=== PATIENT | female | born 1935 | race Caucasian/White ===

== ENCOUNTER 2018-08-02 14:08 | Emergency (ER) | payer BC ==
[2018-08-02 15:25] LABS: Absolute Lymphocytes (CBC) 2.1 K/uL (0.7-4.9); Absolute Monocytes 0.4 K/uL (0.1-1.3); Absolute Neutrophil 3.5 K/uL (1.8-8.0); Basophils % 0.9 % (0-1.3); Hematocrit 36.8 % (36.0-45.0); Lymphocytes % 32.2 % (15.3-44.8); MPV 8.2 fL (7.6-11.3); Monocytes % 6.7 % (3.3-12.3); RBC Red Blood Cell Count 4.07 M/uL (3.86-4.86)
--- NOTE | 2018-08-02 15:31 | RAD REPORT ---
EXAM DESCRIPTION: RAD - Chest Single View - 08/02/2018 3:14 pm CLINICAL HISTORY: Left-sided chest pain COMPARISON: None. TECHNIQUE: AP portable chest image was obtained 1511 hours . FINDINGS: Lungs are clear. Heart and vasculature are normal. No measurable pleural effusion and no p neumothorax. No acute bony abnormality seen. No acute aortic findings suspected. IMPRESSION: No acute cardiopulmonary process.
[2018-08-02 15:32] LABS: BUN Blood Urea Nitrogen 12 mg/dL (7-18); Bicarbonate 26 mmol/L (21-32); Glucose Level 100 mg/dL (74-106); NT PRO-BNP 138 pg/mL (<450); Potassium 3.8 mmol/L (3.5-5.1); Sodium Level 140 mmol/L (136-145); Troponin (Emerg Dept Use Only) < 0.02 ng/mL (0.0-0.045)
--- NOTE | 2018-08-02 16:12 | ER ---
Nurse's Notes [facility] Name: Jihan Jiménez Age: 83 yrs Sex: Female : 1935 Arrival Date: 08/02/2018 Time: 14:11 Bed 14 Private MD: Diagnosis: Chest pain, unspecified Presentation: 08/02 14:14 Presenting complaint: Patient states: Left-sided chest pain radiating to left scapula aa5 that began yesterday. Denies SOB, denies nausea. Transition of care: patient was not received from another setting of care. Onset of symptoms was August 02, 2018. Risk Assessment: Do you want to hurt yourself or someone else? Patient reports no desire to harm self or others. Initial Sepsis Screen: Does the patient meet any 2 criteria? No. Patient's initial sepsis screen is negative. Does the patient have a suspected source of infection? No. Patient's initial sepsis screen is negative. Care prior to arrival: None. 14:14 Method Of Arrival: Ambulatory aa5 14:14 Acuity: DEBBY 2 aa5 Historical: - Allergies: 14:19 PENICILLINS; aa5 14:19 unknown antibiotic; aa5 - Home Meds: 14:19 glipizide-metformin 2.5-500 mg oral tab 2 times per day [Active]; metoprol succ ER aa5 100mg daily [Active]; lisinopril 10 mg Oral tab 1 tab once daily [Active]; hydrochlorothiazide 25 mg Oral tab once daily [Active]; simvastatin 10 mg Oral tab 1 tab once daily [Active]; - PMHx: 14:19 Diabetes - NIDDM; Hypertension; Hyperlipidemia; aa5 - PSHx: 14:19 cataracts removed; Appendectomy; Cholecystectomy; Hysterectomy; aa5 - Immunization history:: Flu vaccine is up to date. - Social history:: Smoking status: Patient/guardian denies using tobacco. - Ebola Screening: : No symptoms or risks identified at this time. - Family history:: not pertinent. - Hospitalizations: : No recent hospitalization is reported. Screenin:57 Abuse screen: Denies threats or abuse. Denies injuries from another. Nutritional ph screening: No deficits noted. Tuberculosis screening: No symptoms or risk factors identified. Fall Risk None identified. Assessment: 14:45 General: Appears in no apparent distress. comfortable, well groomed, Behavior is calm, ph cooperative, appropriate for age, Denies fever, feeling ill. Pain: Complains of pain in anterior aspect of left upper chest Pain radiates to left scapular area Quality of pain is described as pressure, sharp, Pain began 1 day ago. Neuro: Level of Consciousness is awake, alert, obeys commands, Oriented to person, place, time, situation. Cardiovascular: Reports chest pain, Denies nausea, palpitations, shortness of breath, Capillary refill < 3 seconds in bilateral fingers Patient's skin is warm and dry. Rhythm is sinus rhythm. Respiratory: Airway is patent Respiratory effort is even, unlabored. Derm: Skin is intact, is healthy with good turgor, Skin is pink, warm \T\ dry. Musculoskeletal: Circulation, motion, and sensation intact. Range of motion: intact in all extremities. 16:02 Reassessment: Patient appears in no apparent distress at this time. Patient and/or ph family updated on plan of care and expected duration. Pain level reassessed. Patient is alert, oriented x 3, equal unlabored respirations, skin warm/dry/pink. ERP at bedside to speak w/ pt. Vital Signs: 14:15 BP 152 / 66; Pulse 72; Resp 16 S; Temp 98.2(TE); Pulse Ox 96% on R/A; Weight 63.5 kg aa5 (R); Height 4 ft. 11 in. (149.86 cm) (R); Pain 6/10; 15:30 BP 115 / 56; Pulse 66; Resp 18; Pulse Ox 98% on R/A; Pain 4/10; ph 14:15 Body Mass Index 28.28 (63.50 kg, 149.86 cm) aa5 ED Course: 14:11 Patient arrived in ED. as 14:14 Arm band placed on. aa5 14:15 Triage completed. aa5 14:15 Inserted saline lock: 20 gauge in right antecubital area, using aseptic technique. ph Blood collected. 14:20 EKG completed in triage. Results shown to MD. aa5 14:27 Bill Talamantes MD is Attending Physician. rn 15:13 XRAY Chest (1 view) In Process Unspecified. EDMS 15:55 Corinne Jarrett, RN is Primary Nurse. ph 15:58 Patient has correct armband on for positive identification. Bed in low position. Call ph light in reach. Side rails up X 1. cardiac monitor technician on. Pulse ox on. NIBP on. 16:02 No provider procedures requiring assistance completed. ph 16:03 Patient maintains SpO2 saturation greater than 95% on room air. ph 16:12 Adam Gamez MD is Referral Physician. rn 16:17 IV discontinued, intact, bleeding controlled, No redness/swelling at site. Pressure em1 dressing applied. 16:28 IV discontinued. ph Administered Medications: No medications were administered Outcome: 16:12 Discharge ordered by . rn 16:28 Discharged to home ambulatory. ph 16:28 Condition: good 16:28 Discharge instructions given to patient, Instructed on discharge instructions, follow up and referral plans. Demonstrated understanding of instructions, follow-up care. 16:29 Patient left the ED. ph Signatures: Dispatcher [employer] EDMS Carri Riddle Roman, MD MD rn Venkatesh, Kartik em1 Lenka Capone RN RN aa5 Corinne Jarrett RN RN ph Corrections: (The following items were deleted from the chart) 14:20 14:14 Acuity: DEBBY 3 aa5 aa5 14:20 14:15 BP 152 / 66; Pulse 72bpm; Resp 16bpm; Spontaneous; Pulse Ox 96% RA; Temp 98.2F aa5 Temporal; aa5
--- NOTE | 2018-08-02 16:12 | EDPHYS ---
Physician Documentation [facility] Name: Jihan Jiménez Age: 83 yrs Sex: Female : 1935 Arrival Date: 08/02/2018 Time: 14:11 Bed 14 Private MD: ED Physician Bill Talamantes HPI: 08/02 16:07 This 83 yrs old Female presents to ER via Ambulatory with complaints of Chest rn Pain. 16:07 The patient or guardian reports chest pain that is located primarily in the anterior rn chest wall, left. 16:07 Onset: yesterday. The pain does not radiate. Associated signs and symptoms: The patient rn has no apparent associated signs or symptoms, Pertinent negatives: abdominal pain, cough, diaphoresis, dizziness, lower extremity swelling, nausea, near syncope, palpitations, recent travel, shortness of breath, syncope, vomiting. Modifying factors: The symptoms are alleviated by nothing. Severity of pain: At its worst the pain was mild in the emergency department the pain has improved. The patient has not experienced similar symptoms in the past. Reports left sided chest pain, was sharp yesterday, heavy feeling today, went away overnight, woke up today with some chest discomfort, that stuck around but improved on its own, no radiation, no diaphoresis or nausea. Reports moved here from [place] beginning of june to take care of her sick sister 27/10, not sleeping, very stressed. No known CAD or SC. Nothing makes it better or worse. NO abd pain/vomiting. . Historical: - Allergies: 14:19 PENICILLINS; aa5 14:19 unknown antibiotic; aa5 - Home Meds: 14:19 glipizide-metformin 2.5-500 mg oral tab 2 times per day [Active]; metoprol succ ER aa5 100mg daily [Active]; lisinopril 10 mg Oral tab 1 tab once daily [Active]; hydrochlorothiazide 25 mg Oral tab once daily [Active]; simvastatin 10 mg Oral tab 1 tab once daily [Active]; - PMHx: 14:19 Diabetes - NIDDM; Hypertension; Hyperlipidemia; aa5 - PSHx: 14:19 cataracts removed; Appendectomy; Cholecystectomy; Hysterectomy; aa5 - Immunization history:: Flu vaccine is up to date. - Social history:: Smoking status: Patient/guardian denies using tobacco. - Ebola Screening: : No symptoms or risks identified at this time. - Family history:: not pertinent. - Hospitalizations: : No recent hospitalization is reported. ROS: 16:07 Constitutional: Negative for fever, chills, and weight loss, Eyes: Negative for injury, rn pain, redness, and discharge, Neck: Negative for injury, pain, and swelling, Cardiovascular: + chest heaviness and sharpness Respiratory: Negative for shortness of breath, cough, wheezing, and pleuritic chest pain, Abdomen/GI: Negative for abdominal pain, nausea, vomiting, diarrhea, and constipation, MS/Extremity: Negative for injury and deformity, Skin: Negative for injury, rash, and discoloration, Neuro: Negative for headache, weakness, numbness, tingling, and seizure. Exam: 16:07 Constitutional: This is a well developed, well nourished patient who is awake, alert, rn appears anxious Head/Face: Normocephalic, atraumatic. Eyes: Pupils equal round and reactive to light, extra-ocular motions intact. Lids and lashes normal. Conjunctiva and sclera are non-icteric and not injected. Cornea within normal limits. Periorbital areas with no swelling, redness, or edema. Neck: Trachea midline, no thyromegaly or masses palpated, and no cervical lymphadenopathy. Supple, full range of motion without nuchal rigidity, or vertebral point tenderness. No Meningismus. Cardiovascular: Regular rate and rhythm with a normal S1 and S2. No pulse deficits. Respiratory: Clear breath sounds bilaterally, no wheezing, no retractions. Abdomen/GI: soft, non-tender MS/ Extremity: Pulses equal, no cyanosis. Neurovascular intact. Full, normal range of motion. Equal circumference. Neuro: Awake and alert, GCS 15, oriented to person, place, time, and situation. Cranial nerves II-XII grossly intact. Motor strength 5/5 in all extremities. Sensory grossly intact. Vital Signs: 14:15 BP 152 / 66; Pulse 72; Resp 16 S; Temp 98.2(TE); Pulse Ox 96% on R/A; Weight 63.5 kg aa5 (R); Height 4 ft. 11 in. (149.86 cm) (R); Pain 6/10; 15:30 BP 115 / 56; Pulse 66; Resp 18; Pulse Ox 98% on R/A; Pain 4/10; ph 14:15 Body Mass Index 28.28 (63.50 kg, 149.86 cm) aa5 MDM: 14:28 Patient medically screened. rn 16:07 Differential diagnosis: acute myocardial infarction, acute pericarditis, anxiety, rn coronary artery disease chest wall pain, costochondritis, esophagitis, gastritis, gastroesophageal reflux disease (GERD), pleurisy, pneumothorax, stable angina. Data reviewed: vital signs, nurses notes, lab test result(s), EKG, radiologic studies, plain films, and as a result, I will admit patient. Counseling: I had a detailed discussion with the patient and/or guardian regarding: the historical points, exam findings, and any diagnostic results supporting the discharge/admit diagnosis, lab results, radiology results, the need for further work-up and treatment in the hospital. Refusal of service: The patient/guardian displays adequate decision making capability and despite a detailed discussion of alternatives, benefits, risks, and consequences refuses: Admission to the hospital for further work-up and treatment. ED course: Pt does not want to be admitted, recommended admission for ECHO/stress given medical problems and age, patient believes this is more stress and lack of sleep, wants to go home and promises to return/call 911 if worsens. She plans of making outpt appt with cardiology. Return precautions and risks of leaving explained and understood. . 08/02 14:42 Order name: Basic Metabolic Panel; Complete Time: 15:34 08/02 14:42 Order name: CBC with Diff; Complete Time: 15: 08/02 14:42 Order name: NT PRO-BNP; Complete Time: 15:34 08/02 14:42 Order name: Troponin (emerg Dept Use Only); Complete Time: 15:34 rn 08/02 14:42 Order name: XRAY Chest (1 view); Complete Time: 15:34 08/02 14:42 Order name: EKG; Complete Time: 14:42 rn 08/02 14:42 Order name: Cardiac monitoring; Complete Time: 15:55 08/02 14:42 Order name: EKG - Nurse/Tech; Complete Time: 15:55 08/02 14:42 Order name: IV Saline Lock; Complete Time: 15:55 08/02 14:42 Order name: Labs collected and sent; Complete Time: 15:55 rn 08/02 14:42 Order name: O2 Per Protocol; Complete Time: 15:55 rn 08/02 14:42 Order name: O2 Sat Monitoring; Complete Time: 15:56 rn Administered Medications: No medications were administered Disposition: 08/02/18 16:12 Discharged to Home. Impression: Chest pain, unspecified. - Condition is Stable. - Discharge Instructions: Nonspecific Chest Pain, Pain Without a Known Cause. - Medication Reconciliation Form, Thank You Letter, Antibiotic Education, Prescription Opioid Use form. - Follow up: Adam Gamez MD; When: As needed; Reason: Recheck today's complaints, Re-evaluation by your physician. - Problem is new. - Symptoms have improved. Signatures: Dispatcher [employer] EDMS Bill Talamantes MD MD rn Calderon, Audri RN RN aa5 Corinne Jarrett RN RN ph Corrections: (The following items were deleted from the chart) 16:29 16:12 08/02/2018 16:12 Discharged to Home. Impression: Chest pain, unspecified. ph Condition is Stable. Forms are Medication Reconciliation Form, Thank You Letter, Antibiotic Education, Prescription Opioid Use. Follow up: Adam Gamez; When: As needed; Reason: Recheck today's complaints, Re-evaluation by your physician. Problem is new. Symptoms have improved. rn
--- NOTE | 2018-08-03 07:14 | EKG ---
Test Date: 2018-08-02 Test Time: 14:18:22 Maintenance Coordinator: ISSA MEASUREMENT RESULTS: Intervals: Rate: 70 PA: 158 QRSD: 74 QT: 390 QTc: 421 [place]: P: 36 PA: 158 QRS: 0 T: 50 INTERPRETIVE STATEMENTS: Normal sinus rhythm Normal ECG No previous ECG available for comparison Electronically Signed On 08-03-18 07:13:39 CDT by Trevor Armas
== END 2018-08-02 16:29 | disposition home or self-care (01) ==
LOC: ER 14:08
DX: R07.9 Chest pain, unspecified (principal); I10 Essential (primary) hypertension; E11.9 Type 2 diabetes mellitus without complications; E78.5 Hyperlipidemia, unspecified; Z88.0 Allergy status to penicillin; Z88.1 Allergy status to other antibiotic agents; Z90.710 Acquired absence of both cervix and uterus; Z90.49 Acquired absence of other specified parts of digestive tract
CPT/HCPCS: 36415; 71045; 80048; 83880; 84484; 85025; 93005